=== PATIENT | female | born 1995 | race Caucasian/White ===

== ENCOUNTER 2019-09-04 22:04 | Observation (INO) ==
[2019-09-04 22:49] LABS: Bilirubin,Urine Negative (Negative); Blood,Urine Negative (Negative); Clarity,Urine Clear (Clear); Color,Urine Yellow (Yellow); Glucose,Urine (UA) Normal (Normal); Ketones,Urine Negative (Negative); Leukocyte Esterase,Urine Negative (Negative); Nitrite,Urine Negative (Negative); Protein,Urine Negative (Neg-Trace); Specific Gravity,Urine < 1.005 (1.010-1.025); Urobilinogen,Urine Normal (Normal)
[2019-09-04 23:00] LABS: Amphetamine Screen,Urine Negative ng/mL (Cutoff=1000); Barbiturate Screen,Urine Negative ng/mL (Cutoff=200); Benzodiazepines Screen,Urine Negative ng/mL (Cutoff=200); Cannabinoid Screen,Urine Negative ng/mL (Cutoff = 50); Cocaine Screen,Urine Negative ng/mL (Cutoff= 300); Opiate Screen,Urine Negative ng/mL (Cutoff=300); Phencyclidine Screen,Urine Negative ng/mL (Cutoff=25)
== END 2019-09-04 23:00 | disposition home or self-care (01) ==
LOC: 1NENULAB
PROVIDERS: ADMIT Advanced Practice Midwife; ATTEND Advanced Practice Midwife

== ENCOUNTER 2019-09-14 05:37 | Inpatient (IN) ==
[2019-09-14] MEDS ORDERED: CeFAZolin Premix DUPLEX 2,000 MG/50 ML BAG IVPB ONE (05:38)
[2019-09-14] MEDS ORDERED: Famotidine 20 MG/2 ML VIAL IVP ONE (05:38)
[2019-09-14] MEDS ORDERED: Metoclopramide 10 MG/2 ML VIAL IVP ONE (05:38)
[2019-09-14] MEDS ORDERED: Ringers Solution, Lactated 1,000 ML IVC SCH ×2 (05:45→12:11)
[2019-09-14 06:26] LABS: Basophils % 0.1 %; Eosinophils # 0.1 K/mcL (0.0-0.6); Eosinophils % 0.7 %; Hematocrit 38.4 % (35.3-44.9); Hemoglobin 12.8 g/dL (11.5-15.4); Immature Granulocytes % 0.2 % (0-4); Lymphocytes # 2.2 K/mcL (0.6-4.6); Lymphocytes % 27.3 %; Mean Corpuscular HGB Conc 33.3 g/dL (31.6-35.5); Mean Corpuscular Hemoglobin 28.3 pg (28.0-33.3); Mean Corpuscular Volume 84.8 fL (83.0-100.0); Mean Platelet Volume 11.3 fL (9.4-12.4); Monocytes # 0.5 K/mcL (0.0-1.3); Monocytes % 6.6 %; Neutrophils # 5.3 K/mcL (1.6-8.9); Platelet Count 204 K/mcL (140-400); Red Blood Count 4.53 M/mcL (3.82-4.97); Red Cell Distribution Width 13.4 % (11.5-14.5); Segmented Neutrophils % 65.1 %; White Blood Count 8.1 K/mcL (4.3-11.1)
[2019-09-14] MEDS ORDERED: *HR* FentaNYL (PF) 100 MCG/2 ML VIAL ONE (06:33)
[2019-09-14] MEDS ORDERED: *HR* Morphine Sulfate/PF 10 MG/10 ML AMPUL ONE (06:33)
[2019-09-14] MEDS ORDERED: *HR* Oxytocin 10 UNIT/ML VIAL IM ONE ×3 (06:34→09:47)
[2019-09-14] MEDS ORDERED: EPHEDrine 50 MG/ML VIAL ONE (07:29)
[2019-09-14] MEDS ORDERED: *HR* Phenylephrine 10 MG/ML VIAL ONE (07:29)
[2019-09-14 08:41] LABS: Amphetamine Screen,Urine Negative ng/mL (Cutoff=1000); Barbiturate Screen,Urine Negative ng/mL (Cutoff=200); Benzodiazepines Screen,Urine Negative ng/mL (Cutoff=200); Cannabinoid Screen,Urine Negative ng/mL (Cutoff = 50); Cocaine Screen,Urine Negative ng/mL (Cutoff= 300); Opiate Screen,Urine Negative ng/mL (Cutoff=300); Phencyclidine Screen,Urine Negative ng/mL (Cutoff=25)
[2019-09-14] MEDS ORDERED: *HR* HYDROmorphone (PF) 1 MG/ML SYRINGE IVP PRN (08:58)
[2019-09-14] MEDS ORDERED: Ondansetron 4 MG/2 ML VIAL IVP PRN ×2 (08:58→12:11)
[2019-09-14] MEDS ORDERED: Ibuprofen 400 MG TABLET PO PRN (08:58)
[2019-09-14] MEDS ORDERED: *HR* OxyCODONE/APAP 5/325 TABLET PO PRN (08:58)
[2019-09-14] MEDS ORDERED: Acetaminophen IV 1,000 MG/100 ML INFUS..BTL IVPB ONE (08:59)
[2019-09-14] MEDS ORDERED: Ringers Solution, Lactated 1,000 ML ONE ×2 (09:08→09:47)
[2019-09-14] MEDS ORDERED: Oxytocin 20 units/ LR 1000 mL 20 UNIT/1,000 ML BAG IVC ONE (11:45)
[2019-09-14] MEDS ORDERED: Rho Immune Globulin 1,500 UNIT SYRINGE IM ONE (12:11)
[2019-09-14] MEDS ORDERED: Simethicone 80 MG TAB.CHEW PO PRN (12:11)
[2019-09-14] MEDS ORDERED: Oxytocin 20 units/ LR 1000 mL 20 UNIT/1,000 ML BAG IVC SCH (12:11)
[2019-09-14] MEDS ORDERED: Sennosides 8.6 MG TABLET PO PRN (12:11)
[2019-09-14] MEDS ORDERED: Metoclopramide 10 MG/2 ML VIAL IVP PRN (12:11)
[2019-09-14] MEDS ORDERED: Measles/Mumps/Rubella Vacc 0.5 ML VIAL SQ ONE (12:11)
[2019-09-14] MEDS: Ibuprofen 600 MG TABLET PO PRN (15:39)
[2019-09-14] MEDS: *HR* OxyCODONE/APAP 5/325 TABLET PO PRN (19:38)
[2019-09-15] MEDS: Ibuprofen 600 MG TABLET PO PRN ×2 (02:21→08:36)
[2019-09-15] MEDS: *HR* OxyCODONE/APAP 5/325 TABLET PO PRN (02:21)
[2019-09-15 06:46] LABS: Basophils % 0.1 %; Eosinophils # 0.1 K/mcL (0.0-0.6); Eosinophils % 0.8 %; Hematocrit 28.5 % (35.3-44.9); Immature Granulocytes % 0.4 % (0-4); Lymphocytes # 1.5 K/mcL (0.6-4.6); Lymphocytes % 21.5 %; Mean Corpuscular HGB Conc 33.3 g/dL (31.6-35.5); Mean Corpuscular Hemoglobin 28.9 pg (28.0-33.3); Mean Corpuscular Volume 86.6 fL (83.0-100.0); Mean Platelet Volume 11.1 fL (9.4-12.4); Monocytes # 0.4 K/mcL (0.0-1.3); Monocytes % 5.9 %; Neutrophils # 5.1 K/mcL (1.6-8.9); Platelet Count 147 K/mcL (140-400); Red Blood Count 3.29 M/mcL (3.82-4.97); Red Cell Distribution Width 13.5 % (11.5-14.5); Segmented Neutrophils % 71.3 %; White Blood Count 7.1 K/mcL (4.3-11.1)
[2019-09-15 06:53] LABS: Hemoglobin 9.5 g/dL (11.5-15.4)
[2019-09-15] MEDS ORDERED: Prenatal Vit/FA 1 EACH TABLET PO SCH (09:00)
[2019-09-15 10:45] VITALS: BP 125/78
== END 2019-09-15 14:00 | disposition home or self-care (01) | DRG 540 ==
LOC: 1NENULAB 05:37 → 1NENUOBS 09:39
PROVIDERS: ADMIT Obstetrics & Gynecology; ATTEND Obstetrics & Gynecology